=== PATIENT | male | born 2000 | race Caucasian/White ===

== ENCOUNTER 2021-07-19 15:03 | Outpatient (REF) | payer MEDICAID, SELFPAY | END 2021-07-19 15:04 | disposition home or self-care (01) | LOC: HO.LAB 15:03 | PROVIDERS: Visit Provider Internal Medicine | DX: Z20.822 Contact with and (suspected) exposure to COVID-19 (principal) | CPT/HCPCS: U0003; U0005 ==

== ENCOUNTER 2021-07-30 12:17 | Outpatient (REF) | payer MEDICAID, SELFPAY | END 2021-07-30 12:18 | disposition home or self-care (01) | LOC: HO.LAB 12:17 | PROVIDERS: Visit Provider Internal Medicine | DX: Z20.822 Contact with and (suspected) exposure to COVID-19 (principal) | CPT/HCPCS: C9803; U0003; U0005 ==

== ENCOUNTER 2021-08-09 13:03 | Outpatient (REF) | payer MEDICAID, SELFPAY | END 2021-08-09 13:04 | disposition home or self-care (01) | LOC: HO.LAB 13:03 | PROVIDERS: Visit Provider Internal Medicine | DX: Z20.822 Contact with and (suspected) exposure to COVID-19 (principal) | CPT/HCPCS: U0003; U0005 ==

== ENCOUNTER 2021-11-17 22:03 | Emergency (ER) | payer MEDICAID, SELFPAY ==
--- NOTE | ~2021-11-17 | XR_ITS ---
EXAMINATION: XR ANKLE, RIGHT CLINICAL INFORMATION: Pain anteriorly. COMPARISON: None TECHNIQUE: AP, lateral, and mortise views of the right ankle. FINDINGS: Diffuse soft tissue swelling. No unexpected radiopaque foreign bodies or subcutaneous air. No acute fractures or malalignment. The ankle mortise is congruent. XR/XR ankle RT 2V IMPRESSION: No acute fractures or malalignment.
[2021-11-17 22:05] VITALS: BP 134/45; PULSE 65; RESP 18; TEMP 37.2; O2SAT 98; BMI 24.8
--- NOTE | 2021-11-17 22:20 | ED_ITS ---
HPI - Extremity Injury (Lower) General Chief Complaint: Extremity Injury, Lower Stated Complaint: rt ankle swollen playing basketball Time Seen by Provider: 11/17/21 22:20 Source: patient Mode of arrival: ambulatory Limitations: no limitations History of Present Illness HPI Narrative: 17 y/o male presenting for evaluation of an ankle injury. He reports while playing basketball this evening he came down onto another player's foot and twisted his ankle. He reports in that happened he was unable to walk on it. He thinks he sprained his ankle and has a history of spraining both ankles in the past. He denies any numbness, weakness, tingling. He reports pain with range of motion and palpation. He has not taken any medication for the pain. He applied ice and elevated the foot. MD complaint: ankle injury Onset (ago): hour(s) Injury: Right: ankle Type of Injury: blunt and inversion Place: street/outdoors Severity: moderate Severity scale (1-10): 6 Relieving factors: cold therapy, immobilization and rest Exacerbating factors: weight bearing, movement and palpation Context: jumping Associated symptoms: swelling and able to partially bear weight Other symptoms: none Treatments prior to arrival: cold therapy Related Data Allergies Allergy/AdvReac Type Severity Reaction Status Date / Time No Known Allergies Allergy Unverified 07/02/20 17:24 [No Known Allergies*] Review of Systems Verdana 4l Review of Systems: Verdana 4d Verdana 4d Constitutional: No Fever, No Chills Cardiovascular: No Chest Pain, No SOB Gastrointestinal: No Nausea, No Vomiting Musculoskeletal: +joint pain, No Myalgias Skin: No Skin Lesions, No rash Neuro: No Weakness, No Numbness Heme/Lymph: + BruisingBruising, No Lymphadenopathy PMFSH Social History Social History Advance Directives: No Advance Directives Information Provided: No Physical Exam Verdana 4l Vital Signs: Verdana 4d Verdana 4d Vital Signs: Verdana 4d Verdana 4Bd Last Vital Signs Verdana 4d Coutierier New 4d Coutierier New 4d Temp 98.9 F 11/17/21 22:05 Coutierier New 4d Pulse 65 11/17/21 22:05 Coutierier New 4d Resp 18 11/17/21 22:05 BP 134/45 L 11/17/21 22:05 Pulse Ox 98 11/17/21 22:05 BMI result Body Mass Index 24.8 Appearance: Alert. Oriented X3. No acute distress. HEENT: normal inspection CVS: Normal heart rate and rhythm. Pulses normal. Respiratory: No respiratory distress. Skin: Skin warm and dry. Normal skin color. Normal skin turgor. No rashes. Extremities: Right ankle with moderate swelling of the proximal foot on the lateral aspect as well as the lateral ankle. No point tenderness on the lateral malleolus. Normal range of motion of the ankle with pain upon dorsiflexion. Warm and well perfused. Neurovascularly intact distally. Neuro: Oriented X 3. No motor deficit. No sensory deficit. Gait not tested due to pain. Course Course Course Narrative: 20-year-old male presents to the ER for evaluation of right ankle injury he sustained about 3 hours ago while playing basketball. He came down from rebound and to see his ankle another player's foot. He was unable to walk on after were due to pain. He noticed some swelling of the top of the foot and the lateral side of the ankle. He denies any numbness or tingling. He has not tried to walk on it again since due to the pain. X-ray pending. Reevaluation(s) Reevaluation #1: X-ray shows no acute fractures or malalignment. Placed in Jayson wrap for compression and support. Ankle sprain management discussed. Patient requesting crutches and work note. Stable for discharge home with supportive care. Critical Care Time Critical Care Time Critical Care Time: No Discharge Plan Discharge Clinical Impression: Ankle sprain and strain Patient Disposition: Home, Self-Care Instructions: Ankle Sprain (DC) Additional Instructions: Your x-ray today was normal. Rest your ankle and elevate your foot when possible. Recommend JAYSON wrap for support and compression. Use ice several times per day for the next 48 hours. You may bear weight as tolerated. If pain is too severe, use crutches until better. Take Motrin and/or Tylenol as needed for pain. Follow up with your doctor as needed. Stand Alone Forms: Work/School Release
== END 2021-11-17 23:07 | disposition home or self-care (01) ==
LOC: HO.ED 22:34
PROVIDERS: Emergency Provider Internal Medicine
DX: S93.401A Sprain of unspecified ligament of right ankle, initial encounter (principal); M25.571 Pain in right ankle and joints of right foot; Y93.67 Activity, basketball; Y93.9 Activity, unspecified; Y92.310 Basketball court as the place of occurrence of the external cause; Y99.8 Other external cause status
CPT/HCPCS: 73600; 99283